=== PATIENT | female | born 1960 | race Caucasian/White ===

== ENCOUNTER 2017-09-03 22:19 | Inpatient (IN) | payer BC ==
[~2017-09-03] VITALS: Ht 157.5 cm; Wt 50.0 kg
[2017-09-03 22:20] VITALS: O2SAT 99
[2017-09-03 22:21] VITALS: BP 117/61; PULSE 84; RESP 22; O2SAT 100
[2017-09-03 22:32] VITALS: BP 112/55; PULSE 75; RESP 22; O2SAT 100
[2017-09-03] MEDS ORDERED: ALBUAER3 INH (22:32)
[2017-09-03] MEDS ORDERED: LEVO.1 PO (22:32)
[2017-09-03] MEDS ORDERED: SODIUM CHLORIDE 0.9% FLUSH 10 ML FLUSH IVF PRN (22:45)
[2017-09-03] MEDS: RESP: ALBUTEROL 2.5 MG/IPRATROPIUM 0.5 MG NEB (SCH) INH (22:51)
--- NOTE | 2017-09-03 22:51 | PD ---
HPI Chief Complaint: Respiratory Distress Time Seen by Provider: 22:25 Travel History International Travel<30 days: No Contact w/Intl Traveler<30days: No Traveled to known affect area: No History of Present Illness HPI The patient is a 56 year old female who presents to the [facility] emergency department with a history of shortness of breath that she reports is been worsening over the last 2 days. The patient reports that she has had a worsening cough. She reports that it has not been productive and seems to be stuck in her chest. She reports that she has a history of COPD. She is is not on oxygen at home. She reports that she continues to smoke a half a pack of cigarettes per day. 30 minutes prior to arrival the patient became extremely short of breath. Ambulance services were called and the patient was noted to be diaphoretic, tripoding, or tachypnea. The patient's O2 saturation on room air at that time was 85%. The patient had IV access obtained and was given Solu -Medrol 125 mg IV. The patient was placed on CPAP and given a DuoNeb and 2 albuterol nebulizer treatments prior to arrival. The patient on arrival reports that she is having improvement in her symptoms. The patient continues to have wheezing throughout all lung suero. She denies having any chest pain or chest pressure. She denies having any known recent fevers or chills. Otherwise on review of systems, she denies having any abdominal pain, vomiting, diarrhea, urinary symptoms, or neurologic symptoms. ON LICENSE OF [facility] Past Medical History Narrative Medical The patient's past medical history is significant for COPD, hypothyroid disorder COPD: Yes Thyroid Disease: Yes Tetanus Vaccination: Never Vaccinated Influenza Vaccination: No ?: Not Past Surgical History Surgical History: No Previous Surgery Social History Alcohol Use: Yes (OCCAS) Tobacco Use: Yes (1/2 PCK/DAY) Substance Use: No Allergies-Medications (Allergen,Severity, Reaction): Coded Allergies: No Known Allergies (Unverified , 09/03/17) Reported Meds & Prescriptions Reported Meds & Active Scripts Active Reported Proair Hfa 8.5 GM Inh (Albuterol Sulfate) 90 Mcg/Act Aer 2 Puff INH Q4-6H PRN 108 mcg/actuation Synthroid (Levothyroxine Sodium) 100 Mcg Tab 100 Mcg PO DAILY Review of Systems Except as stated in HPI: all other systems reviewed are Neg General / Constitutional: No: Fever Eyes: No: Visual changes HENT: Positive: Congestion, No: Headaches Cardiovascular: Positive: Diaphoresis, Dyspnea on exertion, No: Chest Pain or Discomfort Respiratory: Positive: Cough, Shortness of Breath, Wheezing Gastrointestinal: No: Abdominal Pain Genitourinary: No: Dysuria Musculoskeletal: No: Pain Skin: No Rash Neurologic: No: Weakness, Focal Abnormalities, Change in Mentation, Slurred Speech, Sensory Disturbance Psychiatric: No: Depression Endocrine: No: Polydipsia Hematologic/Lymphatic: No: Easy Bruising Physical Exam Narrative General: The patient is a well-developed well-nourished female in no acute distress. Head and Neck exam: Head is normocephalic atraumatic. Eyes: EOMI, pupils are equal round and reactive to light. Nose: Midline septum with pink mucous membranes Mouth: Dentition unremarkable. Moist mucus membranes. Posterior oropharynx is not erythematous. No tonsillar hypertrophy. Uvula midline. Airway patent. Neck: No palpable lymphadenopathy. No nuchal rigidity. No thyromegaly. Cardiovascular: Regular rate and rhythm without murmurs, gallops, or rubs. No pulse deficit to the extremities on simultaneous auscultation and palpation of her radial artery. Lungs: Expiratory wheezes audible throughout bilateral lung suero with accessory muscle use noted. No tripoding. No paroxysmal abdominal breathing. No rhonchi or crackles audible. Abdomen: Soft, without tenderness to palpation in all 4 quadrants of the abdomen. No guarding, rebound, or rigidity. Normal bowel sounds are audible. No tenderness on palpation of McBurney's point. Extremities: No clubbing, cyanosis, or edema. 2+ pulses in all 4 extremities. No calf tenderness on palpation peer Back: No costovertebral angle tenderness to palpation. Neurologic Exam: Grossly nonfocal. Skin Exam: No rash noted. Intact skin that is warm and dry. Data Data Last Documented VS Vital Signs Date Time Temp Pulse Resp B/P (MAP) Pulse Ox O2 Delivery O2 Flow Rate FiO2 09/04/17 00:10 98 Nasal Cannula 3.00 09/04/17 00:02 87 15 93/51 (65) 09/03/17 22:53 30 Orders Orders Complete Blood Count With Diff (09/03/17 22:41) Comprehensive Metabolic Panel (09/03/17 22:41) B-Type Natriuretic Peptide (09/03/17 22:41) Act Partial Throm Time (Ptt) (09/03/17:41) Prothrombin Time / Inr (Pt) (09/03/17:41) Magnesium (Mg) (09/03/17 22:41) Ckmb (Isoenzyme) Profile (09/03/17 22:41) Troponin I (09/03/17:41) Blood Culture (09/03/17:41) Iv Access Insert/Monitor (09/03/17:41) Electrocardiogram (09/03/17:41) Ecg Monitoring (09/03/17:41) Oximetry (09/03/17:) Oxygen Administration (09/03/17:) Chest, Single Ap (09/03/17:41) Sodium Chloride 0.9% Flush (Ns Flush) (09/03/17 22:45) Albuterol-Ipratropium Neb (Duoneb Neb) (09/03/17 22:45) Resp Bipap / Cpap Non Invas Vt (09/03/17 22:41) Arterial Blood Gas (Abg) (09/03/17 22:49) Acetaminophen (Tylenol) (09/04/17 00:00) Levofloxacin (Levaquin) (09/04/17 00:00) CKMB (09/03/17 23:35) CKMB% (09/03/17 23:35) Aspirin Chew (Aspirin Chew) (09/04/17 01:30) Admit Order (Ed Use Only) (09/04/17 01:28) Labs Laboratory Tests Test 09/03/17 22:45 09/03/17 22:49 09/03/17 23:25 09/03/17 23:35 White Blood Count 11.7 TH/MM3 Red Blood Count 4.27 MIL/MM3 Hemoglobin 14.8 GM/DL Hematocrit 43.9 % Mean Corpuscular Volume 102.9 FL Mean Corpuscular Hemoglobin 34.6 PG Mean Corpuscular Hemoglobin Concent 33.6 % Red Cell Distribution Width 13.6 % Platelet Count 279 TH/MM3 Mean Platelet Volume 7.1 FL Neutrophils (%) (Auto) 64.8 % Lymphocytes (%) (Auto) 24.4 % Monocytes (%) (Auto) 5.4 % Eosinophils (%) (Auto) 4.2 % Basophils (%) (Auto) 1.2 % Neutrophils # (Auto) 7.6 TH/MM3 Lymphocytes # (Auto) 2.9 TH/MM3 Monocytes # (Auto) 0.6 TH/MM3 Eosinophils # (Auto) 0.5 TH/MM3 Basophils # (Auto) 0.1 TH/MM3 CBC Comment DIFF FINAL Differential Comment B-Type Natriuretic Peptide 8 PG/ML Blood Gas Puncture Site RT RADIAL Blood Gas Patient Temperature 98.6 Blood Gas HCO3 26 mmol/L Blood Gas Base Excess 0.7 mmol/L Blood Gas Oxygen Saturation 91 % Arterial Blood pH 7.37 Arterial Blood Partial Pressure CO2 46 mmHg Arterial Blood Partial Pressure O2 65 mmHG Arterial Blood Oxygen Content 18.3 Vol % Arterial Blood Carboxyhemoglobin 1.7 % Arterial Blood Methemoglobin 0.7 % Blood Gas Hemoglobin 14.4 G/DL Oxygen Delivery Device BiPAP Blood Gas Ventilator Setting IPAP10/EPAP5 Blood Gas Inspired Oxygen 30 % Prothrombin Time 10.2 SEC Prothromb Time International Ratio 1.0 RATIO Activated Partial Thromboplast Time 21.1 SEC Blood Urea Nitrogen 18 MG/DL Creatinine 0.80 MG/DL Random Glucose 125 MG/DL Total Protein 7.0 GM/DL Albumin 3.5 GM/DL Calcium Level 8.2 MG/DL Magnesium Level 2.0 MG/DL Alkaline Phosphatase 56 U/L Aspartate Amino Transf (AST/SGOT) 44 U/L Alanine Aminotransferase (ALT/SGPT) 42 U/L Total Bilirubin 0.3 MG/DL Sodium Level 140 MEQ/L Potassium Level 4.8 MEQ/L Chloride Level 106 MEQ/L Carbon Dioxide Level 26.1 MEQ/L Anion Gap 8 MEQ/L Estimat Glomerular Filtration Rate 75 ML/MIN Total Creatine Kinase 154 U/L Creatine Kinase MB 3.2 NG/ML Troponin I 0.26 NG/ML MDM Medical Decision Making Medical Screen Exam Complete: Yes Emergency Medical Condition: Yes Medical Record Reviewed: Yes Interpretation(s) Last Impressions Chest X-Ray 09/03/17 1079 Signed Impressions: Service Date/Time: Sunday, September 03, 2017 22:56 - CONCLUSION: No acute disease. Mingo Alegre MD Differential Diagnosis COPD exacerbation, versus acute coronary syndrome, versus pneumonia, versus pneumothorax, versus pulmonary embolism Narrative Course During the course of the patient's emergency department visit, the patient's history, examination, and differential diagnosis were reviewed with the patient. The patient was placed on a manager monitoring with oximetry and frequent blood pressure monitoring. The patient had IV access obtained and blood work sent for analysis. The patient had an EKG done on arrival. The patient's EKG shows a sinus rhythm heart rate of 82, QRS duration 94 ms, QTC [address] segment elevation is noted. T waves are inverted in aVL. The patient was continued on BiPAP. The patient was initially provided duo nebs 2. The patient's laboratory studies were reviewed and remarkable for a white count of 11.7, hemoglobin 14.8, platelets 279 with 4.2 eosinophils, ABG revealed a pH of 7.37, PCO2 46, PO2 65, carboxyhemoglobin 1.7, bicarb 26. The patient's BiPAP will be weaned as tolerated. Patient was able to be weaned off BiPAP and supplemental oxygen with an O2 saturation of 97%. CMP was remarkable for a glucose of 125, calcium 8.2, AST 44, magnesium 2.0, CPK within normal limits, troponin I elevated at 0.26, BNP 8, PT 10.2, PTT 21.1. Radiology studies were reviewed and remarkable for Last Impressions Chest X-Ray 09/03/17 2241 Signed Impressions: Service Date/Time: Sunday, September 03, 2017 22:56 - CONCLUSION: No acute disease. Mingo Alegre MD The patient presents with shortness of breath, diaphoresis, diffuse wheezing. The patient has had improvement of her symptoms with treatment for COPD exacerbation, however unfortunately, the patient's troponin is elevated. The patient will be admitted to the hospital for continued treatment, rule out serial cardiac enzyme protocol. The patient denies having chest pain again at this time. The patient's blood pressure is on the lower side, at times in the 90s systolic, therefore nitroglycerin was held. The patient was however given aspirin 324 mg p.o. 1. The patient's results were discussed with the patient, including the plan of care. I explained that further testing and/ or monitoring is indicated based on the patient's history, examination, and/ or laboratory findings. Therefore, I recommended admission for additional evaluation. The patient expressed understanding and was agreeable with this plan. The patient was admitted to the hospital in stable condition and sent to a bed under the care of the [facility] service. Physician Communication Physician Communication The patient's case including history, pertinent physical examination findings, and laboratory studies were discussed with Dr. Esposito. It was agreed that the patient would be admitted to the [facility] service. Diagnosis Primary Impression: COPD exacerbation Additional Impression: Elevated troponin Admitting Information Admitting Physician Requests: Admit Keren Salmeron MD September 03, 2017 22:51
[2017-09-03 22:53] VITALS: RESP 22; O2SAT 100
[2017-09-03 23:10] LABS: AUTOMATED NEUTROPHIL # 7.6 TH/MM3 (1.8-7.7); BASOPHIL # 0.1 TH/MM3 (0-0.2); BASOPHIL % 1.2 % (0.0-2.0); EOSINOPHIL # 0.5 TH/MM3 (0-0.4); EOSINOPHIL % 4.2 % (0.0-4.0); HEMATOCRIT 43.9 % (35.0-46.0); HEMOGLOBIN 14.8 GM/DL (11.6-15.3); LYMPH % 24.4 % (9.0-44.0); LYMPHOCYTE # 2.9 TH/MM3 (1.0-4.8); MEAN CELL VOLUME 102.9 FL (80.0-100.0); MEAN CORPUSCULAR HEMOGLOBIN 34.6 PG (27.0-34.0); MEAN CORPUSCULAR HGB CONC 33.6 % (32.0-36.0); MEAN PLATELET VOLUME 7.1 FL (7.0-11.0); MONO % 5.4 % (0.0-8.0); MONOCYTE # 0.6 TH/MM3 (0-0.9); NEUT % 64.8 % (16.0-70.0); PLATELET COUNT 279 TH/MM3 (150-450); RED BLOOD COUNT 4.27 MIL/MM3 (4.00-5.30); RED CELL DISTRIBUTION WIDTH 13.6 % (11.6-17.2); WHITE BLOOD COUNT 11.7 TH/MM3 (4.0-11.0)
--- NOTE | 2017-09-03 23:13 | RADRPT ---
EXAM DATE/TIME: 09/03/2017 22:56 [place] COMPARISON: No previous studies available for comparison. INDICATIONS : Short of breath. MEDICAL HISTORY : None. SURGICAL HISTORY : None. ENCOUNTER: Initial ACUITY: 1 day PAIN SCORE: 0/10 LOCATION: Bilateral chest FINDINGS: A single view of the chest demonstrates the lungs to be symmetrically aerated without evidence of mas s, infiltrate or effusion. The cardiomediastinal contours are unremarkable. Osseous structures are intact. There are overlying electrocardiogram leads and oxygen tubing. CONCLUSION: No acute disease. Mingo Alegre MD on September 03, 2017 at 23:11 Board Certified Radiologist. This report was verified electronically.
[2017-09-04] VITALS (25 sets, daily range): BP systolic 92–113; BP diastolic 43–94; PULSE 68–95; RESP 15–18; TEMP 98.2–98.9; O2SAT 92–98
[2017-09-04] MEDS ORDERED: ACETAMINOPHEN 325 MG TAB PO ONE
[2017-09-04] MEDS ORDERED: LEVOFLOXACIN 750 MG TAB PO ONE
[2017-09-04 00:06] LABS: PROTHROMBIN TIME - PATIENT 10.2 SEC (9.8-11.6)
[2017-09-04 00:32] LABS: ALBUMIN 3.5 GM/DL (3.4-5.0); ALKALINE PHOSPHATASE 56 U/L (45-117); ALT (GPT) 42 U/L (10-53); AST (GOT) 44 U/L (15-37); BICARBONATE 26.1 MEQ/L (21.0-32.0); BLOOD UREA NITROGEN 18 MG/DL (7-18); CALCIUM 8.2 MG/DL (8.5-10.1); CHLORIDE 106 MEQ/L (98-107); GLOMERULAR FILTRATION RATE 75 ML/MIN (>89); GLUCOSE,RANDOM 125 MG/DL (74-106); SODIUM (NA) 140 MEQ/L (136-145); TOTAL BILIRUBIN ADULT 0.3 MG/DL (0.2-1.0); TROPONIN I 0.26 NG/ML (0.02-0.05)
[2017-09-04] MEDS ORDERED: ACETAMINOPHEN/HYDROcodone 325 MG/5 MG TAB PO PRN (01:30)
[2017-09-04] MEDS ORDERED: RESP: ALBUTEROL 2.5 MG/IPRATROPIUM 0.5 MG NEB (PRN) NEB (01:30)
[2017-09-04] MEDS ORDERED: ASPIRIN 81 MG CHEW TAB CHEW ONE (01:30)
[2017-09-04] MEDS ORDERED: ACETAMINOPHEN 325 MG TAB PO PRN (01:30)
[2017-09-04] MEDS ORDERED: METOCLOPRAMIDE HCL 10 MG/2 ML VIAL IV PUSH PRN (01:30)
[2017-09-04] MEDS ORDERED: SODIUM CHLORIDE 0.9% FLUSH 10 ML FLUSH IV FLUSH PRN (01:30)
[2017-09-04] MEDS ORDERED: BISACODYL 10 MG SUPP RECTAL PRN (01:30)
[2017-09-04] MEDS ORDERED: SENNOSIDES 8.6 MG TAB PO PRN (01:30)
[2017-09-04] MEDS ORDERED: MAGNESIUM HYDROXIDE SUSP 30 ML CUP PO PRN (01:30)
[2017-09-04] MEDS ORDERED: LACTULOSE SYRUP 20 GM/30 ML CUP PO PRN (01:30)
[2017-09-04] MEDS ORDERED: MORPHINE SULFATE 4 MG/ML INJ IV PUSH PRN (01:45)
[2017-09-04] MEDS ORDERED: CITA40TA4 PO (03:04)
[2017-09-04] MEDS ORDERED: CYAN1TAB24 (03:04)
[2017-09-04] MEDS ORDERED: ESTR0.5T PO (03:04)
--- NOTE | 2017-09-04 04:21 | HHI.HP ---
[facility] Davis Gilliam MD Admission Diagnosis COPD exacerbation, Elevated troponin Diagnoses: (1) COPD (chronic obstructive pulmonary disease) Diagnosis: Principal (2) Hypoxia Diagnosis: Principal (3) Elevated troponin Diagnosis: Principal Travel History International Travel<30 Days: No Contact w/Intl Traveler <30 Da: No Traveled to Known Affected Are: No History of Present Illness This is a 56-year-old female with a PMH of COPD, Hypothyroidism and Tobacco Abuse who presented to the ER with complaints of SOB and non-productive cough x2 days. Reports associated fatigue and lethargy. Denies fever, chills or chest pain. No recent sick contacts. Upon EMS arrival, noted to have O2 sat 85 % on RA, s/p DuoNeb and Solu-Medrol prior to arrival. Placed on BIPAP in ER w/ significant improvement, O2 sat 100%, ABG essentially unremarkable, eventually weaned off BIPAP, currently on 3L NC w/ O2 sat 95%. BP 104/57, HR 86, Afebrile. WBC 11.7. Chemistry essentially unremarkable. Troponin 0 0.26. INR 1.0. CXR with no acute findings. Remains chest pain-free Review of Systems Except as stated in HPI: all other systems reviewed are Neg ROS: 14 point review of systems otherwise negative. Past Family Social History Past Medical History PMH: COPD, Hypothyroidism and Tobacco Abuse Past Surgical History PAST SURGICAL HISTORY: None Allergies: Coded Allergies: No Known Allergies (Unverified , 09/03/17) Family History PAST FAMILY HISTORY: Reviewed. No h/o DM or CAD Social History PAST SOCIAL HISTORY: Occasional alcohol. Smokes 1/2ppd. Negative for drugs. Physical Exam Vital Signs Vital Signs Date Time Temp Pulse Resp B/P (MAP) Pulse Ox O2 Delivery O2 Flow Rate FiO2 09/04/17 03:06 83 09/04/17 03:06 98.9 76 16 104/57 (73) 95 09/04/17 03:05 09/04/17 02:46 80 15 92/55 (67) 95 Room Air 09/04/17 00:10 98 Nasal Cannula 3.00 5/21/18 00:02 87 15 93/51 (65) 98 Nasal Cannula 3.00 09/04/17 00:02 98 Nasal Cannula 3.00 09/03/17 22:53 100 BiPAP 30 09/03/17 22:53 22 100 BiPAP 30 09/03/17 22:32 75 22 112/55 (74) 100 BiPAP 30 09/03/17 22:21 84 22 117/61 (79) 100 09/03/17 22:20 99 30 09/03/17 22:20 99 BiPAP 30 Physical Exam PE: GENERAL: Middle-aged white female in no acute distress, appears weak/tired. at bedside HEENT: PERRLA, EOMI. No scleral icterus or conjunctival pallor. No lid lag or facial droop. CARDIOVASCULAR: Regular rate and rhythm. No obvious murmurs to auscultation. No chest tenderness to palpation. RESPIRATORY: No obvious rhonchi or wheezing. Clear to auscultation. Breath sounds equal bilaterally. GASTROINTESTINAL: Abdomen soft, non-tender, nondistended. BS normal. MUSCULOSKELETAL: Extremities without clubbing, cyanosis, or edema. No obvious deformities. NEUROLOGICAL: Awake, alert and oriented x4. No focal neurologic deficits. Moving both upper and lower extremities spontaneously. Laboratory Laboratory Tests Test 09/03/17 22:45 09/03/17 22:49 09/03/17 23:25 09/03/17 23:35 White Blood Count 11.7 Red Blood Count 4.27 Hemoglobin 14.8 Hematocrit 43.9 Mean Corpuscular Volume 102.9 Mean Corpuscular Hemoglobin 34.6 Mean Corpuscular Hemoglobin Concent 33.6 Red Cell Distribution Width 13.6 Platelet Count 279 Mean Platelet Volume 7.1 Neutrophils (%) (Auto) 64.8 Lymphocytes (%) (Auto) 24.4 Monocytes (%) (Auto) 5.4 Eosinophils (%) (Auto) 4.2 Basophils (%) (Auto) 1.2 Neutrophils # (Auto) 7.6 Lymphocytes # (Auto) 2.9 Monocytes # (Auto) 0.6 Eosinophils # (Auto) 0.5 Basophils # (Auto) 0.1 CBC Comment DIFF FINAL Differential Comment B-Type Natriuretic Peptide 8 Blood Gas Puncture Site RT RADIAL Blood Gas Patient Temperature 98.6 Blood Gas HCO3 26 Blood Gas Base Excess 0.7 Blood Gas Oxygen Saturation 91 Arterial Blood pH 7.37 Arterial Blood Partial Pressure CO2 46 Arterial Blood Partial Pressure O2 65 Arterial Blood Oxygen Content 18.3 Arterial Blood Carboxyhemoglobin 1.7 Arterial Blood Methemoglobin 0.7 Blood Gas Hemoglobin 14.4 Oxygen Delivery Device BiPAP Blood Gas Ventilator Setting IPAP10/EPAP5 Blood Gas Inspired Oxygen 30 Prothrombin Time 10.2 Prothromb Time International Ratio 1.0 Activated Partial Thromboplast Time 21.1 Blood Urea Nitrogen 18 Creatinine 0.80 Random Glucose 125 Total Protein 7.0 Albumin 3.5 Calcium Level 8.2 Magnesium Level 2.0 Alkaline Phosphatase 56 Aspartate Amino Transf (AST/SGOT) 44 Alanine Aminotransferase (ALT/SGPT) 42 Total Bilirubin 0.3 Sodium Level 140 Potassium Level 4.8 Chloride Level 106 Carbon Dioxide Level 26.1 Anion Gap 8 Estimat Glomerular Filtration Rate 75 Total Creatine Kinase 154 Creatine Kinase MB 3.2 Troponin I 0.26 Date/Time Source Procedure Growth Status 09/03/17 22:45 Blood Peripheral Aerobic Blood Culture Pending Received 09/03/17 22:45 Blood Peripheral Anaerobic Blood Culture Pending Received Result Diagram: 09/03/17 2245 09/03/17 2335 Caprini VTE Risk Assessment Caprini VTE Risk Assessment: Mod/High Risk (score >= 2) Caprini Risk Assessment Model Point Value = 1 Point Value = 2 Point Value = 3 Point Value = 5 Age 41-60 Minor surgery BMI > 25 kg/m2 Swollen legs Varicose veins or History of unexplained or recurrent spontaneous Oral contraceptives or hormone replacement Sepsis (< 1 month) Serious lung disease, including pneumonia (< 1 month) Abnormal pulmonary function Acute myocardial infarction Congestive heart failure (< 1 month) History of inflammatory bowel disease Medical patient at bed rest Age 61-74 Arthroscopic surgery Major open surgery (> 45 min) Laparoscopic surgery (> 45 min) Malignancy Confined to bed (> 72 hours) Immobilizing plaster cast Central venous access Age >= 75 History of VTE Family history of VTE Factor V Leiden Prothrombin [id number] Lupus anticoagulant Anticardiolipin antibodies Elevated serum homocysteine Heparin-induced thrombocytopenia Other congenital or acquired thrombophilia Stroke (< 1 month) Elective arthroplasty Hip, pelvis, or leg fracture Acute spinal cord injury (< 1 month) Prophylaxis Regimen Total Risk Factor Score Risk Level Prophylaxis Regimen 0-1 Low Early ambulation 2 Moderate Order ONE of the following: *Sequential Compression Device (SCD) *Heparin 5000 units SQ BID 3-4 Higher Order ONE of the following medications: *Heparin 5000 units SQ TID *Enoxaparin/Lovenox 40 mg SQ daily (WT < 150 kg, CrCl > 30 mL/min) *Enoxaparin/Lovenox 30 mg SQ daily (WT < 150 kg, CrCl > 10-29 mL/min) *Enoxaparin/Lovenox 30 mg SQ BID (WT < 150 kg, CrCl > 30 mL/min) AND/OR *Sequential Compression Device (SCD) 5 or more Highest Order ONE of the following medications: *Heparin 5000 units SQ TID (Preferred with Epidurals) *Enoxaparin/Lovenox 40 mg SQ daily (WT < 150 kg, CrCl > 30 mL/min) *Enoxaparin/Lovenox 30 mg SQ daily (WT < 150 kg, CrCl > 10-29 mL/min) *Enoxaparin/Lovenox 30 mg SQ BID (WT < 150 kg, CrCl > 30 mL/min) AND *Sequential Compression Device (SCD) Assessment and Plan Problem List: (1) COPD (chronic obstructive pulmonary disease) ICD Code: J44.9 - Chronic obstructive pulmonary disease, unspecified (2) Hypoxia ICD Code: R09.02 - Hypoxemia (3) Elevated troponin ICD Code: R74.8 - Abnormal levels of other serum enzymes Assessment and Plan A/P: 1. COPD: Chronic Respiratory Failure w/ Acute Exacerbation. Severe. significant respiratory distress on arrival, s/p Solu-Medrol, DuoNeb, will continue w/ Solu-Medrol, DuoNeb q4h and q2h prn, Mucinex, Symbicort. CXR w/ no acute findings, images reviewed by me 2. Hypoxia: O2 sat 85% on RA upon EMS arrival, on BIPAP while in ER, now weaned to 3L NC w/ O2 sat 95%, ABG essentially unremarkable. Monitor O2 closely. 3. Elevated Trop: Trop 0.26, no c/o chest pain, likely demand ischemia, admit for further evaluation, telemetry, check serial cardiac enzymes. ASA, Statin. Hold Metoprolol in light of borderline BP. 4. DVT Prophylaxis: SCD/Teds 5. Social work for d/c planning as needed. 6. Case discussed w/ ER physician at length, labs/records/imaging reviewed by me. Physician Certification 2 Midnight Certification Type: Admission for Inpatient Services Order for Inpatient Services The services are ordered in accordance with Medicare regulations or non- Medicare payer requirements, as applicable. In the case of services not specified as inpatient-only, they are appropriately provided as inpatient services in accordance with the 2-midnight benchmark. Estimated LOS (days): 2 days is the estimated time the patient will need to remain in the hospital, assuming treatment plan goals are met and no additional complications. Post-Hospital Plan: Not yet determined Marta Esposito MD September 04, 2017 04:21
[2017-09-04] MEDS: methylPREDNISolone SOD SUCC 40 MG/1 ML VIAL IV PUSH SCH ×4 (05:43→23:42)
[2017-09-04] MEDS: LEVOTHYROXINE SODIUM 100 MCG TAB PO SCH (05:44)
[2017-09-04] MEDS: RESP: ALBUTEROL 2.5 MG/IPRATROPIUM 0.5 MG NEB (SCH) NEB ×4 (07:42→19:22)
--- NOTE | 2017-09-04 08:04 | EKG ---
Date Performed: 09/03/2017 Time Performed: 22:29:48 PTAGE: 56 years EKG: Sinus rhythm NORMAL ECG NO PREVIOUS TRACING DOCTOR: Justin Mortensen Interpretating Date/Time 09/04/2017 08:02:46
--- NOTE | 2017-09-04 08:35 | PD.CONS ---
HPI Consult Requested By Primary Care Physician Davis Gilliam MD History of Present Illness 56-year-old female with a past medical history of COPD, hypothyroidism who presented with shortness of breath. The patient had onset of shortness of breath, wheezing, and dry coughing yesterday. She states this is similar to a previous COPD exacerbation she had. She denies having any current or previous chest pain either with exertion or at rest. She denies any prior history of heart disease. EKG showed NSR with no ischemic changes. Chest x-ray unremarkable. The patient was found to have a troponin elevation of 0.26 and for this we are consulted. The patient received nebulizers overnight and today the patient reports that her breathing is back to baseline. Review of Systems Negative except as stated in HPI Past Family Social History Allergies: Coded Allergies: No Known Allergies (Unverified , 09/03/17) Past Medical History COPD Hypothyroidism Past Surgical History None Reported Medications Reported Meds & Active Scripts Active Reported B12 (Cyanocobalamin) 1,000 Mcg Tab Citalopram (Citalopram Hydrobromide) 40 Mg Tab 40 Mg PO DAILY Estradiol 0.5 Mg Tab 0.5 Mg PO DAILY Proair Hfa 8.5 GM Inh (Albuterol Sulfate) 90 Mcg/Act Aer 2 Puff INH Q4-6H PRN 108 mcg/actuation Synthroid (Levothyroxine Sodium) 100 Mcg Tab 100 Mcg PO DAILY Active Ordered Medications Current Medications Medications (Trade) Dose Ordered Sig/Grant Route Start Time Stop Time Status Last Admin (SoluMEDROL INJ) 40 mg Q6HR IV PUSH 09/04/17 06:00 09/04/17 05:43 (Symbicort 160-4.5 Mcg Inh) 2 puff Q12HR INH 09/04/17 09:00 (Mucinex Er) 600 mg BID PO 09/04/17 09:00 (Duoneb Neb) 1 ampule Q4HR WHILE AWAKE NEB NEB 09/04/17 08:00 09/04/17 07:42 (Duoneb Neb) 1 ampule Q2HR NEB PRN NEB 09/04/17 01:30 (NS Flush) 2 ml UNSCH PRN IV FLUSH 09/04/17 01:30 (NS Flush) 2 ml BID IV FLUSH 09/04/17 09:00 (Reglan Inj) 5 mg Q6H PRN IV PUSH 09/04/17 01:30 (Heparin Inj) 5,000 units Q12H SQ 09/04/17 09:00 (Tylenol) 650 mg Q6H PRN PO 09/04/17 01:30 ([place] 5-325 Mg) 1 tab Q4H PRN PO 09/04/17 01:30 (Morphine Inj) 2 mg Q3H PRN IV PUSH 09/04/17 01:45 (Dorene-Colace) 1 tab BID PO 09/04/17 09:00 (Milk Of Magnesia Liq) 30 ml Q12H PRN PO 09/04/17 01:30 (Senokot) 17.2 mg Q12H PRN PO 09/04/17 01:30 (Dulcolax Supp) 10 mg DAILY PRN RECTAL 09/04/17 01:30 (Lactulose Liq) 30 ml DAILY PRN PO 09/04/17 01:30 (Aspirin Chew) 81 mg DAILY CHEW 09/04/17 09:00 (Pravachol) 40 mg DAILY PO 09/04/17 09:00 (CeleXA) 40 mg DAILY PO 09/04/17 09:00 (Synthroid) 100 mcg DAILY@0600 PO 09/04/17 06:00 09/04/17 05:44 (Pneumovax-23 Inj) 25 mcg ONCE ONCE IM 09/05/17 10:00 09/05/17 10:01 Family History No h/o DM or CAD Social History Occasional alcohol. Smokes 1/2ppd. Negative for drugs. Physical Exam Vital Signs Vital Signs Date Time Temp Pulse Resp B/P (MAP) Pulse Ox O2 Delivery O2 Flow Rate FiO2 09/04/17 07:42 98 21 09/04/17 06:00 68 09/04/17 05:00 70 09/04/17 04:00 72 09/04/17 03:06 83 09/04/17 03:06 98.9 76 16 104/57 (73) 95 09/04/17 03:05 09/04/17 02:46 80 15 92/55 (67) 95 Room Air 09/04/17 00:10 98 Nasal Cannula 3.00 09/04/17 00:02 87 15 93/51 (65) 98 Nasal Cannula 3.00 09/04/17 00:02 98 Nasal Cannula 3.00 09/03/17 22:53 100 BiPAP 30 09/03/17 22:53 22 100 BiPAP 30 09/03/17 22:32 75 22 112/55 (74) 100 BiPAP 30 09/03/17 22:21 84 22 117/61 (79) 100 09/03/17 22:20 99 30 09/03/17 22:20 99 BiPAP 30 Physical Exam GENERAL: Well-developed well-nourished. In no acute distress and appears comfortable on room air. NECK: No carotid bruits. No JVD. CARDIOVASCULAR: Regular rate and rhythm. No murmur appreciated. RESPIRATORY: No accessory muscle use. Diminished breath sounds in the bases with no wheezing. MUSCULOSKELETAL: No clubbing or cyanosis. No edema. NEUROLOGICAL: Awake and alert. Normal speech. Laboratory Laboratory Tests Test 09/03/17 22:45 09/03/17 22:49 09/03/17 23:25 09/03/17 23:35 White Blood Count 11.7 Red Blood Count 4.27 Hemoglobin 14.8 Hematocrit 43.9 Mean Corpuscular Volume 102.9 Mean Corpuscular Hemoglobin 34.6 Mean Corpuscular Hemoglobin Concent 33.6 Red Cell Distribution Width 13.6 Platelet Count 279 Mean Platelet Volume 7.1 Neutrophils (%) (Auto) 64.8 Lymphocytes (%) (Auto) 24.4 Monocytes (%) (Auto) 5.4 Eosinophils (%) (Auto) 4.2 Basophils (%) (Auto) 1.2 Neutrophils # (Auto) 7.6 Lymphocytes # (Auto) 2.9 Monocytes # (Auto) 0.6 Eosinophils # (Auto) 0.5 Basophils # (Auto) 0.1 CBC Comment DIFF FINAL Differential Comment B-Type Natriuretic Peptide 8 Blood Gas Puncture Site RT RADIAL Blood Gas Patient Temperature 98.6 Blood Gas HCO3 26 Blood Gas Base Excess 0.7 Blood Gas Oxygen Saturation 91 Arterial Blood pH 7.37 Arterial Blood Partial Pressure CO2 46 Arterial Blood Partial Pressure O2 65 Arterial Blood Oxygen Content 18.3 Arterial Blood Carboxyhemoglobin 1.7 Arterial Blood Methemoglobin 0.7 Blood Gas Hemoglobin 14.4 Oxygen Delivery Device BiPAP Blood Gas Ventilator Setting IPAP10/[id number] Blood Gas Inspired Oxygen 30 Prothrombin Time 10.2 Prothromb Time International Ratio 1.0 Activated Partial Thromboplast Time 21.1 Blood Urea Nitrogen 18 Creatinine 0.80 Random Glucose 125 Total Protein 7.0 Albumin 3.5 Calcium Level 8.2 Magnesium Level 2.0 Alkaline Phosphatase 56 Aspartate Amino Transf (AST/SGOT) 44 Alanine Aminotransferase (ALT/SGPT) 42 Total Bilirubin 0.3 Sodium Level 140 Potassium Level 4.8 Chloride Level 106 Carbon Dioxide Level 26.1 Anion Gap 8 Estimat Glomerular Filtration Rate 75 Total Creatine Kinase 154 Creatine Kinase MB 3.2 Troponin I 0.26 Date/Time Source Procedure Growth Status 09/03/17 22:45 Blood Peripheral Aerobic Blood Culture Pending Received 09/03/17 22:45 Blood Peripheral Anaerobic Blood Culture Pending Received Result Diagram: 09/03/175 09/03/172334 Imaging Last Impressions Chest X-Ray 09/03/172240 Signed Impressions: Service Date/Time: Sunday, September 03, 2017 22:56 - CONCLUSION: No acute disease. Mingo Alegre MD Assessment and Plan Assessment and Plan 56-year-old female with a past medical history of COPD, hypothyroidism who presented with shortness of breath Elevated troponin: Possibly demand mediated secondary to severe dyspnea. Dyspnea and wheezing are much improved today and patient wants to proceed with Lexiscan to rule out any ischemic etiology. Dyspnea: Suspect secondary to COPD exacerbation. Ischemic eval as above. Further management per primary team. Discussed Condition With Patient with RN at bedside, Harsh Barros September 04, 2017 08:35
[2017-09-04] MEDS: CITALOPRAM HYDROBROMIDE 40 MG TAB PO SCH (08:43)
[2017-09-04] MEDS: guaiFENesin E.R. 600 MG TAB PO SCH ×2 (08:43→21:43)
[2017-09-04] MEDS: PRAVASTATIN SOD 40 MG TAB PO SCH (08:43)
[2017-09-04] MEDS: ASPIRIN 81 MG CHEW TAB CHEW SCH (08:44)
[2017-09-04] MEDS: DOCUSATE SODIUM 50 MG/SENNA 8.6 MG TAB PO SCH ×2 (08:44→21:00)
[2017-09-04] MEDS: HEPARIN SODIUM - SQ 10,000 UNITS/ML VIAL SQ SCH ×2 (08:44→21:43)
[2017-09-04] MEDS: SODIUM CHLORIDE 0.9% FLUSH 10 ML FLUSH IV FLUSH SCH ×2 (08:48→21:43)
[2017-09-04] MEDS: BUDESONIDE-FORMOTEROL 160/4.5 MCG INHALER INH SCH ×2 (09:00→23:40)
[2017-09-04 09:16] LABS: AUTOMATED NEUTROPHIL # 4.7 TH/MM3 (1.8-7.7); BASOPHIL % 0.4 % (0.0-2.0); HEMATOCRIT 42.3 % (35.0-46.0); HEMOGLOBIN 14.4 GM/DL (11.6-15.3); LYMPH % 10.4 % (9.0-44.0); LYMPHOCYTE # 0.6 TH/MM3 (1.0-4.8); MEAN CELL VOLUME 101.3 FL (80.0-100.0); MEAN CORPUSCULAR HEMOGLOBIN 34.4 PG (27.0-34.0); MEAN PLATELET VOLUME 7.2 FL (7.0-11.0); MONO % 1.3 % (0.0-8.0); MONOCYTE # 0.1 TH/MM3 (0-0.9); NEUT % 87.9 % (16.0-70.0); PLATELET COUNT 302 TH/MM3 (150-450); RED BLOOD COUNT 4.17 MIL/MM3 (4.00-5.30); RED CELL DISTRIBUTION WIDTH 13.5 % (11.6-17.2); WHITE BLOOD COUNT 5.3 TH/MM3 (4.0-11.0)
[2017-09-04 09:40] LABS: ALBUMIN 3.7 GM/DL (3.4-5.0); AST (GOT) 25 U/L (15-37); BICARBONATE 22.7 MEQ/L (21.0-32.0); BLOOD UREA NITROGEN 22 MG/DL (7-18); CALCIUM 8.7 MG/DL (8.5-10.1); CHLORIDE 105 MEQ/L (98-107); CREATININE 0.87 MG/DL (0.50-1.00); GLOMERULAR FILTRATION RATE 68 ML/MIN (>89); GLUCOSE,RANDOM 145 MG/DL (74-106); SODIUM (NA) 139 MEQ/L (136-145)
[2017-09-04 09:42] LABS: ALT (GPT) 42 U/L (10-53)
[2017-09-04 09:45] LABS: ALKALINE PHOSPHATASE 60 U/L (45-117); TOTAL BILIRUBIN ADULT 0.4 MG/DL (0.2-1.0)
[2017-09-04 10:05] LABS: TROPONIN I 0.88 NG/ML (0.02-0.05)
[2017-09-04] MEDS ORDERED: REGADENOSON INJ 0.4 MG/5 ML SYR ONE (14:56)
--- NOTE | 2017-09-04 17:04 | RADRPT ---
EXAM DATE/TIME: 09/04/2017 14:33 [place] COMPARISON: No previous studies available for comparison. INDICATIONS : Dyspnea. Myocardial infarction. DOSE: 26.6 mCi Tc99m Myoview at stress. 8.3 mCi Tc99m Myoview at rest. 0.4 mg Lexiscan STRESS SYMPTOMS: Dyspnea and nausea. EJECTION FRACTION: 66% MEDICAL HISTORY : Chronic obstructive pulmonary disease. Smoker. SURGICAL HISTORY : None. ENCOUNTER: Initial ACUITY: 1 day PAIN SCALE: 0/10 LOCATION: chest TECHNIQUE: The patient underwent pharmacologic stress with infusion of prescribed dose. Continuous ECG tracing was monitored during stress. Gated SPECT imaging was performed after stress and conventional SPECT i maging was performed at rest. The examination was performed on a SPECT/CT scanner, both attenuation and non-corrected datasets were reviewed. FINDINGS: DISTRIBUTION: The maximum perfused segment at stress is in the posterior wall. PERFUSION STUDY: The pattern of perfusion at stress is within normal limits. GATED STUDY: There is intact wall motion and thickening without hypokinetic or dyskinetic segments. CONCLUSION: Normal examination. RISK CATEGORY: Low (<1% Annual Mortality Rate) Cristiano Mccarthy MD on September 04, 2017 at 17:00 Board Certified Radiologist. This report was verified electronically.
[2017-09-05] VITALS (13 sets, daily range): BP systolic 112–113; BP diastolic 55–72; PULSE 68–83; RESP 16–18; TEMP 98.6–98.7; O2SAT 94–98
[2017-09-05] MEDS: LEVOTHYROXINE SODIUM 100 MCG TAB PO SCH (05:42)
[2017-09-05] MEDS: methylPREDNISolone SOD SUCC 40 MG/1 ML VIAL IV PUSH SCH (05:42)
--- NOTE | 2017-09-05 07:33 | PD.CARD.PN ---
Subjective Subjective Remarks Patient remains chest pain-free. Breathing is back to baseline. (Harsh Castrejon) Objective Medications Current Medications Medications (Trade) Dose Ordered Sig/Grant Route Start Time Stop Time Status Last Admin (SoluMEDROL INJ) 40 mg Q6HR IV PUSH 09/04/17 06:00 09/05/17 05:42 (Symbicort 160-4.5 Mcg Inh) 2 puff Q12HR INH 09/04/17 09:00 09/04/17 23:40 (Mucinex Er) 600 mg BID PO 09/04/17 09:00 09/04/17 21:43 (Duoneb Neb) 1 ampule Q4HR WHILE AWAKE NEB NEB 09/04/17 08:00 09/04/17 19:22 (Duoneb Neb) 1 ampule Q2HR NEB PRN NEB 09/04/17 01:30 (NS Flush) 2 ml UNSCH PRN IV FLUSH 09/04/17 01:30 (NS Flush) 2 ml BID IV FLUSH 09/04/17 09:00 09/04/17 21:43 (Reglan Inj) 5 mg Q6H PRN IV PUSH 09/04/17 01:30 (Heparin Inj) 5,000 units Q12H SQ 09/04/17 09:00 09/04/17 21:43 (Tylenol) 650 mg Q6H PRN PO 09/04/17 01:30 ([place] 5-325 Mg) 1 tab Q4H PRN PO 09/04/17 01:30 (Morphine Inj) 2 mg Q3H PRN IV PUSH 09/04/17 01:45 (Dorene-Colace) 1 tab BID PO 09/04/17 09:00 (Milk Of Magnesia Liq) 30 ml Q12H PRN PO 09/04/17 01:30 (Senokot) 17.2 mg Q12H PRN PO 09/04/17 01:30 (Dulcolax Supp) 10 mg DAILY PRN RECTAL 09/04/17 01:30 (Lactulose Liq) 30 ml DAILY PRN PO 09/04/17 01:30 (Aspirin Chew) 81 mg DAILY CHEW 09/04/17 09:00 09/04/17 08:44 (Pravachol) 40 mg DAILY PO 09/04/17 09:00 09/04/17 08:43 (CeleXA) 40 mg DAILY PO 09/04/17 09:00 09/04/17 08:43 (Synthroid) 100 mcg DAILY@0600 PO 09/04/17 06:00 09/05/17 05:42 (Pneumovax-23 Inj) 25 mcg ONCE ONCE IM 09/05/17 10:00 09/05/17 10:01 Vital Signs / I&O Vital Signs Date Time Temp Pulse Resp B/P (MAP) Pulse Ox O2 Delivery O2 Flow Rate FiO2 09/05/17 06:00 70 09/05/17 05:00 68 09/05/17 04:00 68 09/05/17 03:45 98.6 83 18 112/55 (74) 94 09/05/17 03:45 94 Room Air 09/05/17 03:00 71 09/05/17 02:00 76 09/05/17 01:00 76 09/05/17 00:00 76 09/04/17 23:38 98.3 76 18 111/58 (75) 94 09/04/17 23:38 94 Room Air 09/04/17 23:00 84 09/04/17 22:00 82 09/04/17 21:33 98.5 95 18 113/58 (76) 97 09/04/17 21:33 96 Room Air 09/04/17 21:00 82 09/04/17 20:00 82 09/04/17 19:24 92 Nasal Cannula 21 09/04/17 19:00 71 09/04/17 18:30 74 09/04/17 17:09 87 09/04/17 16:21 96 Room Air 09/04/17 16:19 77 09/04/17 16:19 98.2 77 16 96/43 (60) 96 09/04/17 14:11 72 09/04/17 13:06 70 09/04/17 12:05 70 09/04/17 11:42 98.4 75 16 108/94 (99) 93 09/04/17 11:42 75 09/04/17 09:49 69 09/04/17 08:25 78 09/04/17 08:25 98.3 78 16 104/57 (73) 94 09/04/17 07:42 98 21 I/O 5/2109/04/17 09/04/17 09/05/17 09/05/17 09/05/17 07:00 15:00 23:00 07:00 15:00 23:00 Intake Total 240 ml 720 ml 480 ml Output Total 900 ml Balance 240 ml 720 ml -420 ml Intake Oral 240 ml 720 ml 480 ml Output Urine Total 900 ml # Voids 1 3 Physical Exam GENERAL: Well-developed well-nourished. In no acute distress. NECK: No carotid bruits. No JVD. CARDIOVASCULAR: Regular rate and rhythm. No murmur appreciated. RESPIRATORY: No accessory muscle use. Clear to auscultation. Diminished breath sounds especially in the bases bilaterally. No wheezing. MUSCULOSKELETAL: No clubbing or cyanosis. No edema. NEUROLOGICAL: Awake and alert. Normal speech. Laboratory Laboratory Tests Test 09/04/17 08:07 09/04/17 11:39 White Blood Count 5.3 TH/MM3 Red Blood Count 4.17 MIL/MM3 Hemoglobin 14.4 GM/DL Hematocrit 42.3 % Mean Corpuscular Volume 101.3 FL Mean Corpuscular Hemoglobin 34.4 PG Mean Corpuscular Hemoglobin Concent 34.0 % Red Cell Distribution Width 13.5 % Platelet Count 302 TH/MM3 Mean Platelet Volume 7.2 FL Neutrophils (%) (Auto) 87.9 % Lymphocytes (%) (Auto) 10.4 % Monocytes (%) (Auto) 1.3 % Eosinophils (%) (Auto) 0.0 % Basophils (%) (Auto) 0.4 % Neutrophils # (Auto) 4.7 TH/MM3 Lymphocytes # (Auto) 0.6 TH/MM3 Monocytes # (Auto) 0.1 TH/MM3 Eosinophils # (Auto) 0.0 TH/MM3 Basophils # (Auto) 0.0 TH/MM3 CBC Comment DIFF FINAL Differential Comment Blood Urea Nitrogen 22 MG/DL Creatinine 0.87 MG/DL Random Glucose 145 MG/DL Total Protein 7.0 GM/DL Albumin 3.7 GM/DL Calcium Level 8.7 MG/DL Alkaline Phosphatase 60 U/L Aspartate Amino Transf (AST/SGOT) 25 U/L Alanine Aminotransferase (ALT/SGPT) 42 U/L Total Bilirubin 0.4 MG/DL Sodium Level 139 MEQ/L Potassium Level 4.1 MEQ/L Chloride Level 105 MEQ/L Carbon Dioxide Level 22.7 MEQ/L Anion Gap 11 MEQ/L Estimat Glomerular Filtration Rate 68 ML/MIN Troponin I 0.88 NG/ML 1.00 NG/ML Imaging Last Impressions Myocardial Perfusion Scan Nuc Med 09/04/17 0000 Signed Impressions: Service Date/Time: Monday, September 04, 2017 14:33 - CONCLUSION: Normal examination. RISK CATEGORY: Low (<1%% Annual Mortality Rate) Cristiano Mccarthy MD Chest X-Ray 09/03/17 2241 Signed Impressions: Service Date/Time: Sunday, September 03, 2017 22:56 - CONCLUSION: No acute disease. Mingo Alegre MD (Harsh Castrejon) Assessment and Plan Assessment and Plan 56-year-old female with a past medical history of COPD, hypothyroidism who presented with shortness of breath Elevated troponin: Likely demand mediated from severe dyspnea. Lexiscan 09/04 was normal with no evidence of ischemia. Discharge planning from cardiology perspective. Dyspnea: Improved. Suspect secondary to COPD exacerbation. Ischemic eval as above. Further management per primary team. Discussed Condition With Patient, Dr. Solange Walter (Harsh Castrejon) Assessment and Plan agree with above (Colten Swenson MD) Harsh Castrejon September 05, 2017 07:33 Colten Swenson MD September 05, 2017 08:37
[2017-09-05] MEDS: SODIUM CHLORIDE 0.9% FLUSH 10 ML FLUSH IV FLUSH SCH (08:28)
[2017-09-05] MEDS: CITALOPRAM HYDROBROMIDE 40 MG TAB PO SCH (08:28)
[2017-09-05] MEDS: PRAVASTATIN SOD 40 MG TAB PO SCH (08:28)
[2017-09-05] MEDS: ASPIRIN 81 MG CHEW TAB CHEW SCH (08:28)
[2017-09-05] MEDS: DOCUSATE SODIUM 50 MG/SENNA 8.6 MG TAB PO SCH (08:28)
[2017-09-05] MEDS: BUDESONIDE-FORMOTEROL 160/4.5 MCG INHALER INH SCH (08:28)
[2017-09-05] MEDS: guaiFENesin E.R. 600 MG TAB PO SCH (08:28)
[2017-09-05] MEDS: HEPARIN SODIUM - SQ 10,000 UNITS/ML VIAL SQ SCH (08:29)
[2017-09-05] MEDS: RESP: ALBUTEROL 2.5 MG/IPRATROPIUM 0.5 MG NEB (SCH) NEB (08:31)
--- NOTE | 2017-09-05 08:40 | HHI.PR ---
Subjective Remarks dry cough, no sputum no chest pains or shortness of breath, good sats at room air, up and ambulating long discussion with her regarding smoking Objective Vitals Vital Signs Date Time Temp Pulse Resp B/P (MAP) Pulse Ox O2 Delivery O2 Flow Rate FiO2 09/05/17 08:32 97 21 09/05/17 06:00 70 09/05/17 05:00 68 09/05/17 04:00 68 09/05/17 03:45 98.6 83 18 112/55 (74) 94 09/05/17 03:45 94 Room Air 09/05/17 03:00 71 09/05/17 02:00 76 09/05/17 01:00 76 09/05/17 00:00 76 09/04/17 23:38 98.3 76 18 111/58 (75) 94 09/04/17 23:38 94 Room Air 09/04/17 23:00 84 09/04/17 22:00 82 09/04/17 21:33 98.5 95 18 113/58 (76) 97 09/04/17 21:33 96 Room Air 09/04/17 21:00 82 09/04/17 20:00 82 09/04/17 19:24 92 Nasal Cannula 21 09/04/17 19:00 71 09/04/17 18:30 74 09/04/17 17:09 87 09/04/17 16:21 96 Room Air 09/04/17 16:19 77 09/04/17 16:19 98.2 77 16 96/43 (60) 96 09/04/17 14:11 72 09/04/17 13:06 70 09/04/17 12:05 70 09/04/17 11:42 98.4 75 16 108/94 (99) 93 09/04/17 11:42 75 09/04/17 09:49 69 I/O 09/04/17 09/04/17 09/04/17 09/05/17 09/05/17 09/05/17 07:00 15:00 23:00 07:00 15:00 23:00 Intake Total 240 ml 720 ml 480 ml Output Total 900 ml Balance 240 ml 720 ml -420 ml Intake Oral 240 ml 720 ml 480 ml Output Urine Total 900 ml # Voids 1 3 Result Diagram: 09/04/17 0807 09/04/17 0807 Imaging Last Impressions Myocardial Perfusion Scan Nuc Med 09/04/17 0000 Signed Impressions: Service Date/Time: Monday, September 04, 2017 14:33 - CONCLUSION: Normal examination. RISK CATEGORY: Low (<1%% Annual Mortality Rate) Cristiano Mccarthy MD Chest X-Ray 09/03/17 2241 Signed Impressions: Service Date/Time: Sunday, September 03, 2017 22:56 - CONCLUSION: No acute disease. Mingo Alegre MD Objective Remarks awake and alert, no acute distress, sats 94% at room air anicteric no exudates lungs- no rales, no wheezes, no rhnchi, decrease beath sounds regular rhythm abdomen soft, nontender extremities no edema A/P Problem List: (1) COPD (chronic obstructive pulmonary disease) ICD Code: J44.9 - Chronic obstructive pulmonary disease, unspecified (2) Hypoxia ICD Code: R09.02 - Hypoxemia (3) Elevated troponin ICD Code: R74.8 - Abnormal levels of other serum enzymes Assessment and Plan 56 years old 1. COPD: Chronic Respiratory Failure w/ Acute Exacerbation. Severe. significant respiratory distress on arrival- clinically improvec change to po steroids- medrol dose pack continue on MDI- symbicort add- spiriva d/w her to ff up with PCP- and get a Pulmonary function tests as OP 2. Elevated Trop: Trop 0.26, no c/o chest pain, likely demand ischemia,-- no ischemia on Lexiscan- cleared for DC by cardiology 3. smoker - counselled 4. history of hypothyroidism - continue synthroid long idscussion with patient Problem Qualifiers (1) COPD (chronic obstructive pulmonary disease): Qualified Codes: J44.9 - Chronic obstructive pulmonary disease, unspecified Rell Narvaez MD September 05, 2017 08:40
[2017-09-05] MEDS ORDERED: ASPI81 CHEW (08:48)
[2017-09-05] MEDS ORDERED: SPIRCAP INH (08:48)
[2017-09-05] MEDS ORDERED: Budeson-Formot 160-4.5 Mcg Inh INH (08:48)
[2017-09-05] MEDS ORDERED: MEDR4PAK PO (08:49)
[2017-09-05] MEDS ORDERED: TIOTROPIUM BROMIDE 18 MCG INH INH SCH (09:00)
[2017-09-05] MEDS ORDERED: PNEUMOCOCCAL POLYVALENT INJ 25 MCG/0.5 ML SYR IM ONE (10:00)
== END 2017-09-05 10:27 | disposition home or self-care (01) | DRG 190 ==
LOC: NEPE 22:19 → NEDA 09-04 01:29 → HCIS 09-04 02:54
PROVIDERS: ADMIT Internal Medicine; ATTEND Internal Medicine
PROC: 5A09357 Assistance with Respiratory Ventilation, Less than 24 Consecutive Hours, Continuous Positive Airway Pressure (ICD-10-PCS; principal; 2017-09-03)
DX: J44.1 Chronic obstructive pulmonary disease with (acute) exacerbation (principal); J96.21 Acute and chronic respiratory failure with hypoxia; E03.9 Hypothyroidism, unspecified; F17.210 Nicotine dependence, cigarettes, uncomplicated; Z23 Encounter for immunization
CPT/HCPCS: 36600; 71045; 78452; 80053; 82550; 82552; 82805; 83735; 83880; 84484; 85025; 85610; 85730; 87040; 87077; 87186; 87205; 90732; 93005; 93017; 94002; 94640; 94664; A9502; J1644; J2785; J2920